=== PATIENT | female | born 1950 | race Caucasian/White ===

== ENCOUNTER 2017-04-27 14:03 | Inpatient (IN) ==
[2017-04-27] MEDS ORDERED: SODIUM CHLORIDE 0.9% 1,000 ML IV STA (15:02)
[2017-04-27] MEDS ORDERED: ONDANSETRON 4 MG/2 ML VIAL IV STA (15:02)
[2017-04-27 15:13] LABS: Basophils # 0.1 10*3/uL (0.0-0.2); Basophils % 0.4 % (0.0-0.8); Eosinophils # 0.1 10*3/uL (0.0-0.87); Eosinophils % 1.1 % (0.00-10.9); Hematocrit 42.6 VOL% (35.7-47.0); Hemoglobin 14.9 GM/DL (12.0-16.0); Immature Granulocytes % 0.4 %; Immature Granulocytes Absolute 0.05 #; Lymphocytes # 2.3 10*3/uL (1.4-4.0); Lymphocytes % 19.6 % (21.3-54.2); Mean Corpuscular Hemoglobin 31 PG (27-34); Mean Corpuscular Volume 89.1 FL (87-102); Mean Platelet Volume 9.7 FL (9.6-12.0); Monocytes % 8.1 % (1.7-12.7); Neutrophils # 8.2 10*3/uL (1.4-7.4); Neutrophils % 70.4 % (38.7-73.9); Platelet Count 358 T/CUMM (130-400); Red Blood Count 4.78 MC/CUMM (3.8-5.5); Red Cell Distribution Width 13.1 % (9.3-17.3); White Blood Count 11.7 T/CUMM (4-12)
[2017-04-27 15:21] LABS: PT Patient Result 10.7 SECS
[2017-04-27 15:40] LABS: Albumin 4.1 G/DL (3.4-5.0); Bilirubin,Total 0.8 MG/DL (0.2-1.0); Calcium 9.4 MG/DL (8.5-10.1); Lactic Acid 2.7 MMOL/L (0.4-2.0); Osmolality,Calculated 282.5 MOS/KG (273-304); Potassium 3.5 MMOL/L (3.5-5.1); Total Protein 6.8 G/DL (6.4-8.3)
[2017-04-27] MEDS ORDERED: SODIUM CHLORIDE 0.9% 3,350 ML IV ONE (15:52)
[2017-04-27] MEDS ORDERED: ONDANSETRON 4 MG/2 ML VIAL ONE (16:01)
[2017-04-27 17:25] LABS: Apearance,Urine Slightly Hazy (Clear); Bilirubin,Urine Negative (Negative); Blood, Urine Negative (Negative); Glucose,Urine (UA) Negative (Negative); Hyaline Casts,Urine 58 /LPF (0-3); Ketones,Urine 5 mg/dL (Negative); Mucus,Urine Few /LPF (Occasional); Nitrite,Urine Negative (Negative); Protein,Urine 30 MG/DL; RBC,Urine 2 /HPF (0-4); Squamous Epithelial Cell,Urine Occasional /HPF (0-10); Urine Color Yellow (Yellow); Urine Urobilinogen < 2.0 EU/DL (0.2-1.0); WBC,Urine 3 /HPF (0-6)
[2017-04-27] MEDS ORDERED: LORazepam 2 MG/1 ML VIAL IV PRN (18:54)
[2017-04-27] MEDS ORDERED: VANCOMYCIN INJ 1,500 MG in SODIUM CHLORIDE 0.9% 500 ML IV PRN (18:54)
[2017-04-27 19:31] LABS: Hematocrit 38.7 VOL% (35.7-47.0); Hemoglobin 13.1 GM/DL (12.0-16.0)
[2017-04-27] MEDS ORDERED: GENTAMICIN INJ 140 MG in SODIUM CHLORIDE 0.9% 100 ML IV SCH (20:00)
[2017-04-27] MEDS ORDERED: VANCOMYCIN INJ 1,500 MG in SODIUM CHLORIDE 0.9% 500 ML IV ONE (21:00)
[2017-04-27] MEDS: PANTOPRAZOLE 40 MG VIAL IV SCH (21:20)
[2017-04-28] MEDS: PIPERACILLIN/TAZOBACTAM 3,375 MG in SODIUM CHLORIDE 0.9% 100 ML IV SCH ×5 (00:43→23:24)
[2017-04-28 01:33] LABS: Basophils % 0.4 % (0.0-0.8); Eosinophils % 0.3 % (0.00-10.9); Hematocrit 33.5 VOL% (35.7-47.0); Hemoglobin 11.5 GM/DL (12.0-16.0); Immature Granulocytes % 0.3 %; Immature Granulocytes Absolute 0.03 #; Lymphocytes % 19.8 % (21.3-54.2); Mean Corpuscular HGB Conc 34.3 GM/DL (32-36); Mean Corpuscular Hemoglobin 31 PG (27-34); Mean Corpuscular Volume 90.8 FL (87-102); Mean Platelet Volume 10.3 FL (9.6-12.0); Monocytes # 0.9 10*3/uL (0.11-0.8); Monocytes % 9.4 % (1.7-12.7); Neutrophils % 69.8 % (38.7-73.9); Platelet Count 216 T/CUMM (130-400); Red Blood Count 3.69 MC/CUMM (3.8-5.5); Red Cell Distribution Width 13.1 % (9.3-17.3)
[2017-04-28 02:00] LABS: Calcium 7.6 MG/DL (8.5-10.1); Osmolality,Calculated 286.1 MOS/KG (273-304); Potassium 3.7 MMOL/L (3.5-5.1)
[2017-04-28] MEDS: MORPHINE 2 MG/1 ML SYRINGE IV PRN ×3 (03:38→22:09)
[2017-04-28 06:28] LABS: Hematocrit 36.3 VOL% (35.7-47.0); Hemoglobin 12.3 GM/DL (12.0-16.0)
[2017-04-28] MEDS: PANTOPRAZOLE 40 MG VIAL IV SCH ×2 (08:07→20:55)
[2017-04-28] MEDS: SODIUM CHLORIDE 0.45% 1,000 ML IV SCH (09:46)
[2017-04-28] MEDS: ONDANSETRON 4 MG/2 ML VIAL IV PRN (10:55)
[2017-04-28 13:31] LABS: Hematocrit 34.3 VOL% (35.7-47.0); Hemoglobin 11.8 GM/DL (12.0-16.0)
[2017-04-28 19:32] LABS: Hemoglobin 11.5 GM/DL (12.0-16.0)
[2017-04-29 01:29] LABS: Hematocrit 33.1 VOL% (35.7-47.0); Hemoglobin 11.5 GM/DL (12.0-16.0)
[2017-04-29] MEDS: SODIUM CHLORIDE 0.45% 1,000 ML IV SCH (05:43)
[2017-04-29 07:04] LABS: Hematocrit 34.1 VOL% (35.7-47.0); Hemoglobin 11.6 GM/DL (12.0-16.0)
[2017-04-29] MEDS: PANTOPRAZOLE 40 MG VIAL IV SCH ×2 (09:33→21:27)
[2017-04-29] MEDS: PIPERACILLIN/TAZOBACTAM 3,375 MG in SODIUM CHLORIDE 0.9% 100 ML IV SCH ×3 (09:38→23:18)
[2017-04-29] MEDS: MORPHINE 2 MG/1 ML SYRINGE IV PRN ×2 (11:06→23:06)
[2017-04-29 12:36] LABS: Hematocrit 34.8 VOL% (35.7-47.0)
[2017-04-29] MEDS: ACETAMINOPHEN 500 MG TABLET PO PRN (21:26)
[2017-04-30 05:13] LABS: Basophils # 0.1 10*3/uL (0.0-0.2); Basophils % 0.7 % (0.0-0.8); Eosinophils # 0.2 10*3/uL (0.0-0.87); Eosinophils % 2.4 % (0.00-10.9); Hematocrit 33.4 VOL% (35.7-47.0); Hemoglobin 11.5 GM/DL (12.0-16.0); Immature Granulocytes % 0.4 %; Immature Granulocytes Absolute 0.03 #; Lymphocytes % 26.8 % (21.3-54.2); Mean Corpuscular HGB Conc 34.4 GM/DL (32-36); Mean Corpuscular Hemoglobin 30 PG (27-34); Mean Corpuscular Volume 88.4 FL (87-102); Mean Platelet Volume 10.1 FL (9.6-12.0); Monocytes # 0.8 10*3/uL (0.11-0.8); Monocytes % 10.3 % (1.7-12.7); Neutrophils # 4.5 10*3/uL (1.4-7.4); Neutrophils % 59.4 % (38.7-73.9); Platelet Count 199 T/CUMM (130-400); Red Blood Count 3.78 MC/CUMM (3.8-5.5); White Blood Count 7.5 T/CUMM (4-12)
[2017-04-30] MEDS: SODIUM CHLORIDE 0.45% 1,000 ML IV SCH (05:48)
[2017-04-30] MEDS: BISACODYL 5 MG TABLET PO SCH ×2 (08:50→15:23)
[2017-04-30] MEDS: PANTOPRAZOLE 40 MG VIAL IV SCH ×2 (08:50→20:42)
[2017-04-30] MEDS: PIPERACILLIN/TAZOBACTAM 3,375 MG in SODIUM CHLORIDE 0.9% 100 ML IV SCH ×2 (08:54→16:13)
[2017-04-30] MEDS: MORPHINE 2 MG/1 ML SYRINGE IV PRN ×2 (10:37→20:52)
[2017-04-30] MEDS: ONDANSETRON 4 MG/2 ML VIAL IV PRN ×3 (10:47→23:34)
[2017-04-30] MEDS ORDERED: POLYETHYLENE GLYCOL POWDER 255 GM BOTTLE PO ONE (17:00)
[2017-04-30] MEDS: ACETAMINOPHEN 500 MG TABLET PO PRN (18:35)
[2017-05-01] MEDS: PIPERACILLIN/TAZOBACTAM 3,375 MG in SODIUM CHLORIDE 0.9% 100 ML IV SCH ×2 (01:20→08:57)
[2017-05-01 05:10] LABS: Basophils # 0.1 10*3/uL (0.0-0.2); Basophils % 0.8 % (0.0-0.8); Eosinophils # 0.2 10*3/uL (0.0-0.87); Eosinophils % 2.2 % (0.00-10.9); Hematocrit 33.9 VOL% (35.7-47.0); Hemoglobin 12.4 GM/DL (12.0-16.0); Immature Granulocytes % 0.4 %; Immature Granulocytes Absolute 0.03 #; Lymphocytes % 22.8 % (21.3-54.2); Mean Corpuscular HGB Conc 36.6 GM/DL (32-36); Mean Corpuscular Hemoglobin 32 PG (27-34); Mean Corpuscular Volume 87.8 FL (87-102); Monocytes # 1.1 10*3/uL (0.11-0.8); Monocytes % 12.8 % (1.7-12.7); Neutrophils # 5.2 10*3/uL (1.4-7.4); Platelet Count 221 T/CUMM (130-400); Red Blood Count 3.86 MC/CUMM (3.8-5.5); White Blood Count 8.5 T/CUMM (4-12)
[2017-05-01] MEDS: SODIUM CHLORIDE 0.45% 1,000 ML IV SCH (05:27)
[2017-05-01] MEDS ORDERED: PROPOFOL 200 MG/20 ML VIAL IV ONE (08:17)
[2017-05-01] MEDS ORDERED: LIDOCAINE 2% 5 ML VIAL ONE (08:17)
[2017-05-01] MEDS ORDERED: AMOXICILLIN/CLAV 875 MG TABLET PO SCH (09:00)
[2017-05-01] MEDS: MORPHINE 2 MG/1 ML SYRINGE IV PRN (10:09)
[2017-05-01] MEDS: PANTOPRAZOLE 40 MG VIAL IV SCH (10:09)
[2017-05-01 14:04] VITALS: BP 181/75
== END 2017-05-01 15:58 | disposition home or self-care (01) | DRG 394 ==
LOC: N.ED 14:03 → N.EDINP 16:03 → N.3E 17:22 → N.5E 05-01 09:29
PROVIDERS: ADMIT Hospitalist; ATTEND Hospitalist
PROC: COLONBX (2017-05-01 07:35)